=== PATIENT | female | born 1980 | race Caucasian/White ===

== ENCOUNTER 2016-11-04 05:58 | Inpatient (IN) | payer OTHER ==
[2016-11-03 10:30] VITALS: Ht 157.5 cm; Wt 55.0 kg
[~2016-11-04] VITALS: Ht 157.5 cm; Wt 55.0 kg
[2016-11-04] VITALS (27 sets, daily range): BP systolic 99–134; BP diastolic 55–86; PULSE 64–87; RESP 13–27
[~2016-11-04 05:58] MED LIST: CEPH500C PO; HYDR-906 PO; IBUP-1542 PO; NPH10OT LEFT EAR
[2016-11-04] MEDS ORDERED: CEFAZOLIN 2 GM/50 ML (PMX) 50 ML IVPB SCH (06:00)
[2016-11-04] MEDS ORDERED: PROPOFOL 20 ML ONE (07:00)
[2016-11-04] MEDS ORDERED: SUCCINYLCHOLINE CHLORIDE 100 MG/5 ML SYG IV ONE (07:00)
[2016-11-04] MEDS ORDERED: ONDANSETRON 4 MG INJ ONE (07:00)
[2016-11-04] MEDS ORDERED: ROCURONIUM 50 MG INJ ONE (07:00)
[2016-11-04] MEDS ORDERED: FENTAnyl 50 MCG/ML VIAL ONE (07:00)
[2016-11-04] MEDS ORDERED: METOCLOPRAMIDE 10 MG INJ ONE (07:01)
[2016-11-04] MEDS ORDERED: CEFAZOLIN 1 GM INJ ONE (07:01)
[2016-11-04] MEDS ORDERED: DIPHENHYDRAMINE 50 MG INJ IV PRN (07:30)
[2016-11-04] MEDS ORDERED: FENTAnyl 50 MCG/ML VIAL IV PRN ×2 (07:30)
[2016-11-04] MEDS ORDERED: MEPERIDINE 25 MG INJ IV PRN (07:30)
[2016-11-04] MEDS ORDERED: ONDANSETRON 4 MG INJ IV PRN ×3 (07:30→10:30)
[2016-11-04] MEDS ORDERED: HYDROmorphONE (0.2 MG/ML) 10ML SYG IV PRN ×3 (07:30)
[2016-11-04] MEDS ORDERED: HYDROCODONE/APAP (5/325) TAB PO PRN ×4 (07:30→15:00)
[2016-11-04] MEDS ORDERED: NALOXONE (0.4 MG/ML) INJ IV PRN (07:30)
--- NOTE | 2016-11-04 07:51 | HPN ---
Date/Time of Note Date/Time of Note DATE: 11/04/16 TIME: 07:51 Interval H&P Admission Note Pt. seen H&P reviewed: No system changes ALEJANDRA CALLAHAN MD Nov 04, 2016 07:51
[2016-11-04] MEDS ORDERED: VASOPRESSIN 20 UNITS INJ ONE (07:58)
[2016-11-04] MEDS ORDERED: SODIUM CL BACTERIOSTATIC 30 ML INJ ONE (07:59)
--- NOTE | 2016-11-04 09:12 | SIPON ---
Date/Time of Note Date/Time of Note DATE: 11/04/16 TIME: 09:08 Operative Report Preoperative Diagnosis uterine fibroid excessive menstration Postoperative Diagnosis same as above degenerated uterine fibroid see pathologic report Operation/Procedure Performed exploratory lap myomectomy Surgeon: ALEJANDRA CALLAHAN MD Co-Surgeon: LELO WATSON MD Anesthesia Type: general Estimated Blood Loss: 10 - 50 ml's Transfusion Required: no Specimens solitary myoma/adenoma Grafts/Implants: none Grafts/Implants none Complications: no ALEJANDRA CALLAHAN MD Nov 04, 2016 09:12
[2016-11-04] MEDS: HYDROmorphONE 0.2 MG/ML PCA IV SCH ×2 (09:30→19:38)
[2016-11-04] MEDS: LACTATED RINGER'S 1,000 ML IV* SCH ×2 (11:01→14:00)
[2016-11-04] MEDS: LACTATED RINGER'S 1,000 ML IV SCH ×2 (14:58→20:26)
[2016-11-04] MEDS ORDERED: NEOMYC/POLYMYX/HC 10 ML OTIC SUSP LEFT EAR SCH (15:00)
[2016-11-04] MEDS ORDERED: IBUPROFEN 600 MG TAB PO SCH ×2 (15:00)
[2016-11-04] MEDS: IBUPROFEN 600 MG TAB PO SCH (15:00)
[2016-11-04] MEDS: CEFAZOLIN 2 GM/50 ML (PMX) 50 ML IVPB SCH (21:23)
[2016-11-05] VITALS: BP 115/75; RESP 18
[2016-11-05] MEDS: HYDROmorphONE 0.2 MG/ML PCA IV SCH (02:52)
[2016-11-05] MEDS: CEFAZOLIN 2 GM/50 ML (PMX) 50 ML IVPB SCH ×2 (04:24→13:08)
[2016-11-05 05:37] VITALS: BP 109/64; PULSE 103; RESP 20
[2016-11-05 06:00] LABS: BASOPHIL # 0.1 10^3/ul (0.0-0.1); BASOPHILS % 0.4 % (0.0-2.0); EOSINOPHILS % 0.1 % (0.0-7.0); HEMATOCRIT 34.7 % (37.0-47.0); HEMOGLOBIN 11.6 g/dl (12.0-16.0); LYMPHOCYTES # 1.7 10^3/ul (0.8-2.9); LYMPHOCYTES % 11.8 % (15.0-51.0); MEAN CORPUSCULAR HEMOGLOBIN 30.1 pg (29.0-33.0); MEAN CORPUSCULAR HGB CONC 33.4 g/dl (32.0-37.0); MEAN CORPUSCULAR VOLUME 89.9 fl (82.0-101.0); MEAN PLATELET VOLUME 12.2 fl (7.4-10.4); MONOCYTE # 1.2 10^3/ul (0.3-0.9); MONOCYTES % 8.6 % (0.0-11.0); NEUTROPHIL # 11.3 10^3/ul (1.6-7.5); NEUTROPHILS % 78.8 % (39.0-77.0); PLATELET COUNT 198 10^3/UL (140-415); RED BLOOD COUNT 3.86 10^6/ul (4.20-5.40); RED CELL DISTRIBUTION WIDTH 12.3 % (11.5-14.5); WHITE BLOOD COUNT 14.4 10^3/ul (4.8-10.8)
[2016-11-05 07:31] VITALS: BP 104/65; RESP 18
[2016-11-05] MEDS: LACTATED RINGER'S 1,000 ML IV SCH (09:09)
[2016-11-05] MEDS ORDERED: HYDROCODONE/APAP (5/325) TAB PO PRN ×3 (10:35→11:00)
[2016-11-05] MEDS: HYDROCODONE/APAP (5/325) TAB PO PRN ×3 (10:51→20:45)
[2016-11-05] MEDS ORDERED: CEPHALEXIN 500 MG CAP PO SCH (13:00)
[2016-11-05] MEDS: IBUPROFEN 600 MG TAB PO SCH ×2 (13:02→18:02)
--- NOTE | 2016-11-05 18:44 | PN ---
Date/Time of Note Date/Time of Note DATE: 11/05/16 TIME: 18:42 Assessment/Plan Lines/Catheters IV Catheter Type (from Nrs): Peripheral IV Whitt in Place (from Nrsg): Yes Subjective 24 Hr Interval Summary s;no flatus yet ambulating ok O vss afebrile abdomen soft wound dry A stable s/p myomectomy P discharge home in am Exam/Review of Systems Vital Signs Vitals Vital Signs Date Time Temp Pulse Resp B/P Pulse Ox O2 Delivery O2 Flow Rate FiO2 11/05/16 07:31 99.4 102 18 104/65 92 11/05/16 05:37 Room Air Intake and Output 11/04/16 11/04/16 11/05/16 15:00 23:00 07:00 Intake Total 600 ml 1670 ml 1450 ml Output Total 120 ml 250 ml 2000 ml Balance 480 ml 1420 ml -550 ml Results Result Diagram: 11/05/16 0438 ALEJANDRA CALLAHAN MD Nov 05, 2016 18:44
[2016-11-05 20:55] VITALS: BP 93/53; RESP 22
[2016-11-06] MEDS: IBUPROFEN 600 MG TAB PO SCH ×4 (00:22→18:19)
[2016-11-06 01:37] VITALS: BP 93/57; RESP 22
[2016-11-06 07:55] VITALS: BP 86/50; RESP 15
[2016-11-06 11:06] VITALS: BP 95/63; PULSE 87; RESP 18
[2016-11-06] MEDS: HYDROCODONE/APAP (5/325) TAB PO PRN ×2 (11:20→15:58)
[2016-11-06 14:00] VITALS: BP 106/67; RESP 15
--- NOTE | 2016-11-06 17:34 | PD.PPDC ---
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
--- NOTE | 2016-11-06 17:58 | DS ---
Date/Time of Note Date/Time of Note DATE: 11/06/16 TIME: 17:54 Discharge Summary Admission/Discharge Info Admit Date/Time Nov 04, 2016 at 05:58 Discharge Date/Time 11/06/16 1800 Patient Condition: Stable Consults none Procedures exp lap myomectomy Hx of Present Illness large intramural myoma causing excessive menstrarion underwent exp lap myomectomy had unevenful course Hospital Course same as above Home Meds Active Scripts Ibuprofen* (Motrin*) 600 Mg Tab, 600 MG PO Q6, #30 TAB Prov:BIANCA MITCHELL 01/27/16 Hydrocodone/Acetaminophen ([place] 5-325 Tablet) 1 Each Tablet, 1 TAB PO Q6H Y for PAIN, #15 TAB Prov:BIANCA MITCHELL 01/27/16 Ibuprofen* (Ibuprofen*) 600 Mg Tablet, 600 MG PO Q6, #20 TAB Prov:AGUSTINA VALIENTE MD 11/24/15 Cephalexin* (Cephalexin*) 500 Mg Capsule, 500 MG PO QID, #28 CAP Prov:AGUSTINA VALIENTE MD 11/24/15 Neomycin/Polymyxin/Hydrocort* (Cortisporin* Otic) 10 Ml Susp, 4 DROP LEFT EAR QID for 7 Days, EA Prov:AGUSTINA VALIENTE MD 11/24/15 Follow-up Plan 2wks at my office Primary Care Provider MD SINDY Garcia MEE SOOK MD Nov 06, 2016 17:58
--- NOTE | 2016-11-06 18:05 | HP ---
Date/Time of Note Date/Time of Note DATE: 11/06/16 TIME: 18:01 Assessment/Plan VTE Prophylaxis VTE Prophylaxis Intervention: ambulation Lines/Catheters IV Catheter Type (from [facility]): [place] Central line still needed: No Urinary Cath still in place: No Assessment/Plan Chief Complaint/Hosp Course same as above Problems: Assessment/Plan A intramural myoma excessive menstration pelvic pain P Exploratory laparotomy myomectomy poss JIM HPI/ROS Admit Date/Time Admit Date/Time Nov 04, 2016 at 05:58 Hx of Present Illness large intramural myoma causing excessive menstration admitted for exploratory laparatomy myomectomy possible total abdominal hystrectomy ROS excessive menstrstion pelvic pain Constitutional: improved, no complaints PMH/Family/Social Past Medical History Medical History: no pertinent history Past Surgical History Past Surgical Hx: no surgical history Family History Significant Family History: no pertinent family hx Social History Alcohol Use: none Smoking Status: Never smoker Drug Use: none Exam/Review of Systems Vital Signs Vitals Vital Signs Date Time Temp Pulse Resp B/P Pulse Ox O2 Delivery O2 Flow Rate FiO2 11/06/16 14:00 97.8 85 15 106/67 99 11/06/16 11:06 Room Air Intake and Output 11/05/16 11/05/16 11/06/16 15:00 23:00 07:00 Intake Total 250 ml 1720 ml 960 ml Output Total 1950 ml 900 ml Balance 250 ml -230 ml 60 ml Exam Constitutional: alert, oriented, well developed Psych: nl mood/affect, no complaints Head: atraumatic, normocephalic Eyes: EOMI, PERRL, nl conjunctiva, nl lids, nl sclera ENMT: nl external ears & nose, nl lips & teeth, nl nasal mucosa & septum Neck: non-tender, supple Respiratory: clear to auscultation, normal air movement Cardiovascular: nl pulses, regular rate and rhythm Gastrointestinal: nl liver, spleen, non-tender, soft Genitourinary - Female: uterus (enlarged uterus iwth intramural myoma) Musculoskeletal: nl extremities to inspection Extremities: normal pulses 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, nl mental status, nl speech, nl strength Skin: nl turgor, No rash or lesions Lymph: nl lymph nodes Labs Result Diagram: 11/05/16 0438 Medications Medications Current Medications Naloxone HCl (Narcan) 0.2 mg PRN PRN IV DECREASED REPIRATORY RATE; Start at 07:30 Diphenhydramine HCl (Benadryl) 25 mg Q6H PRN IV ITCHING; Start 11/04/16 at 07: 30 Ondansetron HCl (Zofran Inj) 4 mg Q6H PRN IV NAUSEA AND/OR VOMITING Last administered on 11/05/16 13:07; Admin Dose 4 MG; Start 11/04/16 at 10:30 Ibuprofen (Motrin) 600 mg Q6 PO Last administered on 11/06/16 05:45; Admin Dose 600 MG; Start 11/04/16 at 15:00; Status Future hold Acetaminophen/ Hydrocodone Bitart ([place] (5/325)) 1 tab Q4H PRN PO PAIN LEVEL 1 -5; Start 11/05/16 at 11:00 Acetaminophen/ Hydrocodone Bitart ([place] (5/325)) 2 tab Q4H PRN PO PAIN LEVEL 6 -10 Last administered on 11/06/16 15:58; Admin Dose 2 TAB; Start 11/05/16 at 11 :00 ALEJANDRA CALLAHAN MD Nov 06, 2016 18:05
--- NOTE | 2016-11-06 18:06 | DS ---
Date/Time of Note Date/Time of Note DATE: 11/06/16 TIME: 18:05 Discharge Summary Admission/Discharge Info Admit Date/Time Nov 04, 2016 at 05:58 Discharge Date/Time Hx of Present Illness large intramural myoma causing excessive menstration admitted for exploratory laparatomy myomectomy possible total abdominal hystrectomy Hospital Course same as above Home Meds Active Scripts Ibuprofen* (Motrin*) 600 Mg Tab, 600 MG PO Q6, #30 TAB Prov:PETRA MITCHELLNA C 01/27/16 Hydrocodone/Acetaminophen ([place] 5-325 Tablet) 1 Each Tablet, 1 TAB PO Q6H Y for PAIN, #15 TAB Prov:PETRA MITCHELLNA C 01/27/16 Ibuprofen* (Ibuprofen*) 600 Mg Tablet, 600 MG PO Q6, #20 TAB Prov:AGUSTINA VALIENTE MD 11/24/15 Cephalexin* (Cephalexin*) 500 Mg Capsule, 500 MG PO QID, #28 CAP Prov:AGUSTINA VALIENTE MD 11/24/15 Neomycin/Polymyxin/Hydrocort* (Cortisporin* Otic) 10 Ml Susp, 4 DROP LEFT EAR QID for 7 Days, EA Prov:AGUSTINA VALIENTE MD 11/24/15 Follow-up Plan 2wks at my office Primary Care Provider MD SINDY Garcia MEE SOOK MD Nov 06, 2016 18:05
--- NOTE | 2016-11-07 05:21 | OPR ---
DATE OF OPERATION: 11/04/2016 PREOPERATIVE DIAGNOSIS: Uterine fibroid. Excessive menstruation. POSTOPERATIVE DIAGNOSIS: Uterine fibroid. Excessive menstruation. See pathological report. OPERATION PERFORMED: 1. Exploratory laparotomy. 2. Myomectomy. ANESTHESIA: General. ANESTHESIOLOGIST: Corbin Guajardo MD SURGEON: Janet Benton MD NURSING DEPARTMENT CHAIRPERSON: Marko Jimenes MD ESTIMATED BLOOD LOSS: Less than 100 cc. OPERATIVE PROCEDURE: Under appropriate induction of general anesthesia, the patient was placed in the frog-leg position. Whitt catheter was introduced into the bladder under sterile condition. The vaginal wall was prepped and repositioned to supine. Abdominal wall was prepped and draped in usual aseptic manner. A transverse incision was made at approximately two fingers above the pubic rami and incision was made initially small, and due to the size of the of the size of the fibroid extended on each side. The incision was carried down through the subcutaneous tissue to the anterior rectus fascia which was incised transversely in the length of the incision. The fascial flap was created by blunt and sharp dissection of tendinous attachment upward and downward. The rectus muscles were split in midline and peritoneal cavity was entered digitally. The pelvic organs were explored and the uterus appeared to be deeper than expected, which was approximately 12 weeks of gestational size. The fundus was grasped with Piter clamp, trying to exteriorize the uterus, which failed and incision was extended further. The uterus was able to be exteriorized. The uterus was very soft and feels like adenomyosis. There was no discrete mass palpated. At this point, it was suspicious of adenomyosis but during the exteriorizing the uterus, the uterus outside of the incision, there was a torn on the fundus, which shows the shiny capsule, which was suggesting possible fibroid, which was delivered out through the incision and then felt. The uterine fibroid which was soft, possibly degenerated with different consistency in the surrounding tissue. At this point, incision was made over the fibroid located and the incision was expanded using the back of the knife handle and from the overlying uterine muscle, and enucleated the entire fibroid which was approximately 10 cm in diameter, which was and the defect was closed using number 1 chromic catgut. After the after the fibroid was removed, it was noticed that the endometrium was involved and there was opening into the cavity. The defect was closed using number 1 chromic catgut in continuous manner, sparing the endometrium and this was closed with two layers, and then the uterine serosa with underlying uterine serosa with underlying muscle, separately closed with 0 chromic catgut on a thinner needle in continuous manner. Prior to making the incision, vasopressin 10 units diluted in 20 cc of normal saline was injected deeply into the surrounding uterine muscle to reduce the blood loss. After the main incision was closed, there was a little defect on the left lateral area which she was torn by Piter clamp, which was closed with number 1 chromic catgut in the [id number] manner. No bleeding was noted. A piece of Interceed was attached to the incisional site for prevention of adhesions. After the irrigation, all the blood were removed. The uterus was relocated into the abdominal cavity and we checked for bleeders, which was intact. The sponge count was taken which was correct and parietal peritoneum was closed using 0 [id number] catgut in continuous manner. The muscle closed with 0 chromic catgut in continuous manner. Fascia closed with number 1 Vicryl in continuous manner in two segments. The subcutaneous tissue irrigated with water. This layer was approximated with 2-0 plain in continuous manner. Skin closed with INSORB. Steri-Strips were applied. A pressure dressing applied. Estimated blood loss of less than 100 cc. The patient withstood the procedure well, sent to the recovery room in stable condition. Dictated By: Janet Benton MD /stewart/dionna /Document#: [id number]
== END 2016-11-06 20:22 | disposition home or self-care (01) | DRG 743 ==
LOC: REC 05:58 → EDSTATUS 07:30 → MS1 10:27
PROVIDERS: ADMIT Obstetrics & Gynecology; ATTEND Obstetrics & Gynecology
PROC: 0UB90ZZ Excision of Uterus, Open Approach (ICD-10-PCS; principal; 2016-11-04 07:30)
DX: D25.1 Intramural leiomyoma of uterus (principal); R10.2 Pelvic and perineal pain; N92.0 Excessive and frequent menstruation with regular cycle
CPT/HCPCS: 85025; 86850; 86900; 86901; 86920; 87086; 88304; J0690; J1170; J2175; J2405; J2765; J3010; J7120; J7999